=== PATIENT | female | born 1960 | race Caucasian/White ===

== ENCOUNTER → 2021-09-15 | Outpatient (CLI) | payer OTHER ==
--- NOTE | 2021-09-15 12:59 | RAD ---
XR LUMBAR SPINE 2-3V History: Reason: BACK PAIN, DISABILITY DETERMINATION / Spl. Instructions: / History: Technique: 3 views lumbar spine. Comparison: None. Findings: Grade 1 anterolisthesis L4 on L5. Normal vertebral body height. No acute fracture. Moderate degenerat chen disc changes most prominent L5-S1. Moderate facet arthropathy. Vascular calcifications. Impression: 1. Moderate lumbar spondylosis most prominent L5-S1. Electronically signed by: Alex Dennis DO (09/15/2021 12:57 PM) [id number]
== END ==
LOC: RAD 09:28
PROVIDERS: ATTEND Anesthesiology Pain Medicine
DX: Z02.71 Encounter for disability determination (principal); M51.37 Other intervertebral disc degeneration, lumbosacral region; M48.07 Spinal stenosis, lumbosacral region; M43.16 Spondylolisthesis, lumbar region
CPT/HCPCS: 72100